=== PATIENT | female | born 1965 | race Caucasian/White ===

== ENCOUNTER 2017-11-23 16:46 | Emergency (ER) | payer MEDICAID ==
[~2017-11-23] VITALS: Ht 177.8 cm; Wt 115.0 kg
[2017-11-23 16:49] VITALS: BP 174/94; PULSE 110; RESP 16; TEMP 98.1; O2SAT 100
[2017-11-23] MEDS ORDERED: SODIUM CHLOR 0.9% 1000 ML INJ 1,000 ML IV SCH (17:23)
[2017-11-23] MEDS ORDERED: SODIUM CHLORIDE 0.9% FLUSH 10 ML FLUSH IV FLUSH PRN (17:30)
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
[2017-11-23 18:04] LABS: AUTOMATED NEUTROPHIL # 6.5 TH/MM3 (1.8-7.7); BASOPHIL # 0.1 TH/MM3 (0-0.2); BASOPHIL % 0.6 % (0.0-2.0); EOSINOPHIL # 0.1 TH/MM3 (0-0.4); EOSINOPHIL % 0.9 % (0.0-4.0); HEMATOCRIT 33.8 % (35.0-46.0); LYMPH % 29.7 % (9.0-44.0); MEAN CELL VOLUME 89.7 FL (80.0-100.0); MEAN CORPUSCULAR HEMOGLOBIN 31.9 PG (27.0-34.0); MEAN CORPUSCULAR HGB CONC 35.5 % (32.0-36.0); MONO % 4.3 % (0.0-8.0); MONOCYTE # 0.4 TH/MM3 (0-0.9); NEUT % 64.5 % (16.0-70.0); PLATELET COUNT 270 TH/MM3 (150-450); RED BLOOD COUNT 3.77 MIL/MM3 (4.00-5.30); RED CELL DISTRIBUTION WIDTH 14.5 % (11.6-17.2)
[2017-11-23] MEDS ORDERED: OXYC-395 PO (18:05)
[2017-11-23] MEDS ORDERED: CYCL5TAB PO (18:05)
[2017-11-23] MEDS ORDERED: HYDR-3799 PO (18:05)
[2017-11-23] MEDS ORDERED: LEVEMIR SQ (18:05)
[2017-11-23] MEDS ORDERED: LIPI10TA PO (18:05)
[2017-11-23] MEDS ORDERED: CYMB30CA PO (18:05)
[2017-11-23] MEDS ORDERED: LOSA25TA PO (18:05)
[2017-11-23] MEDS ORDERED: RISP0.5T25 PO (18:05)
[2017-11-23] MEDS ORDERED: GABA300C5 PO (18:05)
[2017-11-23] MEDS ORDERED: METO100T PO (18:05)
--- NOTE | 2017-11-23 18:14 | RADRPT ---
EXAM DATE/TIME: 11/23/2017 17:45 [facility] COMPARISON: No previous studies available for comparison. INDICATIONS : Chest pain post fall MEDICAL HISTORY : Diabetes mellitus type II. Hypertension SURGICAL HISTORY : None. ENCOUNTER: Initial ACUITY: 1 day PAIN SCORE: 6/10 LOCATION: chest FINDINGS: A single view of the chest demonstrates the lungs to be symmetrically aerated without evidence of mas s, infiltrate or effusion. The cardiomediastinal contours are unremarkable. Osseous structures are intact. CONCLUSION: No acute disease. Yo Pablo MD on November 23, 2017 at 18:12 Board Certified Radiologist. This report was verified electronically.
--- NOTE | 2017-11-23 18:14 | RADRPT ---
EXAM DATE/TIME: 11/23/2017 17:47 [facility] COMPARISON: No previous studies available for comparison. INDICATIONS : Left shoulder pain post fall MEDICAL HISTORY : Diabetes mellitus type II. Hypertension SURGICAL HISTORY : None. ENCOUNTER: Initial ACUITY: 1 day PAIN SCORE: 8/10 LOCATION: Left shoulder FINDINGS: Multiple view examination of the left shoulder demonstrates no evidence of fracture or dislocation. The glenohumeral and acromioclavicular joints are maintained. There is normal range of motion betwee n internal and external rotation. Bony mineralization is normal. CONCLUSION: Unremarkable examination of the left shoulder. Yo Pablo MD on November 23, 2017 at 18:12 Board Certified Radiologist. This report was verified electronically.
--- NOTE | 2017-11-23 18:14 | RADRPT ---
EXAM DATE/TIME: 11/23/2017 17:50 [facility] COMPARISON: No previous studies available for comparison. INDICATIONS : Right ankle pain MEDICAL HISTORY : Hypertension. Diabetes mellitus type II. SURGICAL HISTORY : None. ENCOUNTER: Initial ACUITY: 1 day PAIN SCORE: 7/10 LOCATION: Right ankle FINDINGS: Decreased bone mineralization. There is soft tissue swelling laterally. Ankle mortise is approximated . I do not see a fracture. CONCLUSION: Soft tissue swelling laterally. Yo Pablo MD on November 23, 2017 at 18:12 Board Certified Radiologist. This report was verified electronically.
[2017-11-23 18:15] VITALS: O2SAT 98
[2017-11-23 18:17] LABS: PROTHROMBIN TIME - PATIENT 10.2 SEC (9.8-11.6)
[2017-11-23 18:22] LABS: ALBUMIN 3.2 GM/DL (3.4-5.0); AST (GOT) 17 U/L (15-37); BLOOD UREA NITROGEN 15 MG/DL (7-18); CALCIUM 9.1 MG/DL (8.5-10.1); CHLORIDE 105 MEQ/L (98-107); GLOMERULAR FILTRATION RATE 47 ML/MIN (>89); GLUCOSE,RANDOM 261 MG/DL (74-106); SODIUM (NA) 138 MEQ/L (136-145)
[2017-11-23 18:23] LABS: ALT (GPT) 24 U/L (10-53)
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
[2017-11-23 18:33] LABS: ALKALINE PHOSPHATASE 164 U/L (45-117); TOTAL BILIRUBIN ADULT 0.4 MG/DL (0.2-1.0); TOTAL PROTEIN 7.6 GM/DL (6.4-8.2); TROPONIN I LESS THAN 0.02 NG/ML (0.02-0.05)
[2017-11-23 18:35] LABS: ACETAMINOPHEN LESS THAN 2.0 MCG/ML (10.0-30.0)
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
[2017-11-23 20:18] LABS: BACTERIA, URINE RARE /hpf; BILIRUBIN, URINE NEG (NEG); BLOOD, URINE MOD (NEG); GLUCOSE,URINE 1000 mg/dL (NEG); KETONE, URINE 10 mg/dL (NEG); MUCUS URINE FEW /lpf (OCC); NITRITE,URINE NEG (NEG); PH, URINE 5.5 (5.0-8.5); SQUAMOUS EPITHELIAL CELL URINE 5 /hpf (0-5); TRANSITIONAL EPI CELLS, URINE <1 /hpf; URINE COLOR YELLOW (YELLW/STRAW); URINE LEUKOCYTE ESTERASE LARGE (NEG)
[2017-11-23] MEDS ORDERED: cefTRIAXone INJ 1,000 MG in SODIUM CHLORIDE 0.9% INJ 100 ML IV ONE (20:30)
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
[2017-11-23 21:58] VITALS: BP 163/88; PULSE 99; RESP 20; O2SAT 100
[2017-11-23] MEDS ORDERED: KETOROLAC TROMETHAMINE 30 MG/ML (IVP) VIAL IV PUSH ONE (22:00)
[2017-11-23] MEDS ORDERED: BACT800T5 PO (22:10)
[2017-11-23] MEDS ORDERED: risperiDONE 1 MG TAB PO ONE (22:30)
--- NOTE | 2017-11-24 08:55 | EKG ---
Date Performed: 11/23/2017 Time Performed: 18:42:41 PTAGE: 51 years EKG: SINUS TACHYCARDIA ABNORMAL RHYTHM ECG NO PREVIOUS TRACING DOCTOR: Mami Salmeron Interpretating Date/Time 11/24/2017 08:54:56
== END 2017-11-23 23:22 | disposition home or self-care (01) ==
LOC: NEPE 16:46
DX: N28.1 Cyst of kidney, acquired (principal); N39.0 Urinary tract infection, site not specified; S09.90XA Unspecified injury of head, initial encounter; S99.911A Unspecified injury of right ankle, initial encounter; S49.92XA Unspecified injury of left shoulder and upper arm, initial encounter; W19.XXXA Unspecified fall, initial encounter; R94.31 Abnormal electrocardiogram [ECG] [EKG]; E11.9 Type 2 diabetes mellitus without complications; I10 Essential (primary) hypertension
CPT/HCPCS: 70450; 71045; 72125; 73030; 73610; 74176; 80053; 80307; 81001; 82140; 82550; 82552; 83605; 84443; 84484; 85025; 85610; 85730; 87086; 93005; 96361; 96365; 96366; 96375; 99285; J0696; J1885; J7030

== ENCOUNTER 2018-05-21 13:31 | Inpatient (IN) ==
[2018-05-21] MEDS ORDERED: Aluminum/Magnesium/Simethacone Susp 30 ML UDC PO PRN (20:04)
[2018-05-21] MEDS ORDERED: Melatonin 5 MG Tablet PO PRN (20:04)
[2018-05-21] MEDS ORDERED: Dextrose 50% in Water 50 ML Vial IV.PUSH PRN (20:07)
[2018-05-21] MEDS: Acetaminophen 325 MG Tablet PO PRN (22:25)
[2018-05-21] MEDS: Insulin NovoLOG Aspart Correctional Sugar Inj SQ SCH (22:31)
[2018-05-22] MEDS: Acetaminophen 325 MG Tablet PO PRN (05:00)
[2018-05-22 05:34] VITALS: O2SAT 97
[2018-05-22 05:55] VITALS: RESP 16
[2018-05-22] MEDS: Insulin NovoLOG Aspart Correctional Sugar Inj SQ SCH ×3 (08:00→11:42)
[2018-05-22 08:27] LABS: Albumin 2.6 g/dL (3.4-5.0); Anion Gap 11 meq/L (5-15); Aspartate Aminotransferase 12 U/L (15-37); Blood Urea Nitrogen 10 mg/dL (7-18); Chloride 113 meq/L (98-107); Glomerular Filtration Rate 59 mL/min (>89); Glucose,Random 93 mg/dL (74-106); Potassium 3.2 meq/L (3.5-5.1); Sodium 145 meq/L (136-145)
[2018-05-22 08:28] LABS: Alanine Aminotransferase 17 U/L (10-53); Cholesterol 101 mg/dL (120-200)
[2018-05-22 08:30] LABS: Total Protein 6.1 g/dL (6.4-8.2)
[2018-05-22 08:31] LABS: Alkaline Phosphatase 134 U/L (45-117); Chol/HDL Ratio 4.22 Ratio; HDL Cholesterol 23.9 mg/dL (40.0-60.0); LDL Cholesterol,Calculated 48 mg/dL (0-99); Triglycerides 144 mg/dL (42-150)
[2018-05-22] MEDS: Gabapentin 300 MG Capsule PO SCH ×2 (08:41→12:43)
[2018-05-22] MEDS: hydrALAZINE 25 MG Tablet PO SCH ×2 (08:42→12:43)
[2018-05-22] MEDS ORDERED: Insulin Detemir Inj 1,000 UNIT/10 ML Vial SQ SCH (09:00)
[2018-05-22] MEDS ORDERED: Metoprolol Tartrate 100 MG Tablet PO SCH (09:00)
[2018-05-22 09:13] LABS: Baso % (Auto) 0.4 % (0.0-2.0); Eos % (Auto) 0.5 % (0.0-4.0); Hemoglobin 10.1 gm/dL (11.6-15.3); Lymph # (Auto) 2.4 th/mm3 (1.0-4.8); Lymph % (Auto) 31.6 % (9.0-44.0); Mean Corpuscular HGB Conc 32.8 % (32.0-36.0); Mean Corpuscular Hemoglobin 30.3 pg (27.0-34.0); Mean Corpuscular Volume 92.5 fL (80.0-100.0); Mono # (Auto) 0.6 th/mm3 (0.0-0.9); Mono % (Auto) 8.3 % (0.0-8.0); Neut # (Auto) 4.5 th/mm3 (1.8-7.7); Neut % (Auto) 59.2 % (16.0-70.0); Platelet Count 192 th/mm3 (150-450); Red Blood Count 3.35 mil/mm3 (4.00-5.30); White Blood Count 7.6 th/mm3 (4.0-11.0)
--- NOTE | 2018-05-22 09:36 | P.CONIM ---
History of Present Illness Service: [facility] Consult date: 05/22/18 Reason for Consult: Medical mgmt Primary Care Provider: Gasper Singh Family Provider: Gasper Singh Chief Complaint: overdose History of Present Illness: This is a 52-year-old CF with PMHx of Depression, HTN, IDDM, and HLD admitted from [facility] under [place] act. The patient was admitted initially for intentional overdose of her prescription medications and required ICU care. Per the [facility]'s office patient was depressed because she got a text from her daughter saying she was not wanted. The patient then took a large number of pills in an attempt to end her life and posted it on her daughter's FB page. Patient on evaluation today states that she is still depressed but no longer has S/H ideation. Patient reports compliance with all medications for her chronic illness, she states that she has a PCP that she sees every few months. She reports that her BS are stable, she denies CP and SOB. we have been consulted for medical mgmt. Review of Systems All other systems reviewed negative except as stated in HPI PMFSH - History History Provided By: Patient - Medical History Medical History: Medical History (Last Updated 05/22/18 @ 14:47 by Laurie Hill MD) Diabetes History of hysterectomy Hyperlipidemia Hypertension - Surgical History Surgical History: Surgical History (Last Updated 05/22/18 @ 14:47 by Laurie Hill MD) History of back surgery History of knee surgery Hx of cholecystectomy - Family History Family History: Family History (Last Reviewed 05/22/18 @ 14:48 by Laurie Hill MD) Other Mood disorder Psychosis - Social History I have reviewed the patient's Social History: Yes - Tobacco History Second Hand Smoke Exposure: No Tobacco Use In Past 30 Days: No Smoking Status: Former smoker Tobacco Type: Cigarettes - Alcohol History How Often Do You Have a Drink Containing Alcohol: Never - Substance Use History Substance History: No History of Abuse - Immunization History Tetanus Immunization: Unable to Assess Hx Influenza Vaccine This Season: No Medications and Allergies Active Medications: Active Medications Acetaminophen (Tylenol) 650 mg PO Q4H PRN PRN Reason: Pain 1-5 or Temp >101F Last Admin: 05/22/18 05:00 Dose: 650 mg Al Hydrox/Mg Hydrox/Simethicone (Mag-Al Plus Susp Liq) 30 ml PO Q6H PRN PRN Reason: DYSPEPSIA Al Hydroxide/Mg Hydroxide (Milk Of Magnesia Liq) 30 ml PO Q12H PRN PRN Reason: Mild Constipation Atorvastatin Calcium (Lipitor) 20 mg PO DAILY [facility] Last Admin: 05/22/18 08:40 Dose: 20 mg Clonidine HCl (Catapres) 0.1 mg PO Q8HR PRN PRN Reason: SBP>180 or DBP>100 Last Admin: 05/22/18 05:01 Dose: 0.1 mg Dextrose (D50w Vial) 50 ml IV.PUSH UNSCH PRN PRN Reason: PER HYPOGLYCEMIA PROTOCOL Gabapentin (Neurontin) 600 mg PO TID [facility] Last Admin: 05/22/18 08:41 Dose: 600 mg Glucagon (Glucagon Inj) 1 mg OTHER PRN PRN PRN Reason: for Hypoglycemia Protocol Hydralazine HCl (Apresoline) 25 mg PO TID [facility] Last Admin: 05/22/18 08:42 Dose: 25 mg Insulin Aspart (Novolog Insulin Correctional Sugar Inj) 0 unit SQ [facility]; Protocol Last Admin: 05/22/18 08:46 Dose: Not Given Insulin Detemir (Levemir Inj) 35 unit SQ BID [facility] Last Admin: 05/22/18 08:44 Dose: 35 unit Losartan Potassium (Cozaar) 25 mg PO DAILY [facility] Last Admin: 05/22/18 08:41 Dose: 25 mg Melatonin (Melatonin) 5 mg PO HS PRN PRN Reason: INSOMNIA Last Admin: 05/21/18 22:25 Dose: 5 mg Metoprolol Tartrate (Lopressor) 100 mg PO BID [facility] Last Admin: 05/22/18 08:41 Dose: 100 mg Nicotine (Habitrol 21 Mg Patch.24 Hr) 1 patch T-DERMAL DAILY PRN PRN Reason: Nicotine craving Patch Removal (Remove Old Patch) 1 each T-DERMAL DAILY [facility] Last Admin: 05/22/18 08:45 Dose: Not Given Potassium Chloride (K-Dur) 40 meq PO ONCE ONE Stop: 05/22/18 09:35 Allergies Allergy/AdvReac Type Severity Reaction Status Date / Time lisinopril Allergy Unknown Verified 11/23/17 18:19 metformin Allergy Unknown Verified 11/23/17 18:19 prochlorperazine Allergy Unknown Verified 11/23/17 18:19 Home Medications Medication Instructions Recorded Confirmed Type atorvastatin 20 mg PO DAILY 05/21/18 05/21/18 History duloxetine 30 mg PO BID 05/21/18 05/21/18 History gabapentin 600 mg PO TID 05/21/18 05/21/18 History hydralazine 25 mg PO TID 05/21/18 05/21/18 History insulin detemir U-100 [Levemir 35 unit SUBCUT BID 05/21/18 05/21/18 History U-100 Insulin] losartan 25 mg PO DAILY 05/21/18 05/21/18 History metoprolol tartrate 100 mg PO BID 05/21/18 05/21/18 History Exam Vital signs: Vital Signs 05/21/18 22:25 05/21/18 23:29 05/21/18 23:31 Temperature Pulse Rate 133 H 98 H Respiratory Rate 28 H 18 16 Blood Pressure 193/103 H 157/74 H Pulse Oximetry 05/22/18 05:32 05/22/18 05:54 05/22/18 06:49 Temperature 98.2 F Pulse Rate 108 H Respiratory Rate 18 16 16 Blood Pressure 205/115 H 157/77 H Pulse Oximetry 97 Narrative: GENERAL: well nourished female, in NAD, lying comfortable in bed SKIN: Warm and dry. HEAD: Normocephalic. EYES: No scleral icterus. No injection or drainage. NECK: Supple, trachea midline. No JVD or lymphadenopathy. CARDIOVASCULAR: Regular rate and rhythm without murmurs, gallops, or rubs. RESPIRATORY: Breath sounds equal bilaterally. No accessory muscle use. GASTROINTESTINAL: Abdomen soft, non-tender, nondistended. MUSCULOSKELETAL: No cyanosis, or edema. BACK: Nontender without obvious deformity. No CVA tenderness. Results - Labs CBC & Chem 7: 05/22/18 07:13 05/22/18 07:13 Labs: Laboratory Results - last 24 hr 05/21/18 05/22/18 05/22/18 21:04 06:30 07:13 WBC 7.6 RBC 3.35 L Hgb 10.1 L Hct 31.0 L MCV 92.5 MCH 30.3 MCHC 32.8 RDW 15.0 Plt Count 192 MPV 9.0 Neut % (Auto) 59.2 Lymph % (Auto) 31.6 [place] % (Auto) 8.3 H Eos % (Auto) 0.5 Baso % (Auto) 0.4 Neut # (Auto) 4.5 Lymph # (Auto) 2.4 [place] # (Auto) 0.6 Eos # (Auto) 0.0 Baso # (Auto) 0.0 WBC Differential . Differential Comment Auto diff final Sodium Potassium Chloride Carbon Dioxide Anion Gap BUN Creatinine Estimated GFR POC Glucose 166 H 108 Random Glucose Calcium Total Bilirubin AST ALT Alkaline Phosphatase Total Protein Albumin Triglycerides Cholesterol LDL Cholesterol, Calc HDL Cholesterol Cholesterol/HDL Ratio 05/22/18 05/22/18 07:13 07:39 WBC RBC Hgb Hct MCV MCH MCHC RDW Plt Count MPV Neut % (Auto) Lymph % (Auto) [place] % (Auto) Eos % (Auto) Baso % (Auto) Neut # (Auto) Lymph # (Auto) [place] # (Auto) Eos # (Auto) Baso # (Auto) WBC Differential Differential Comment Sodium 145 Potassium 3.2 L Chloride 113 H Carbon Dioxide 21.0 Anion Gap 11 BUN 10 Creatinine 0.99 Estimated GFR 59 L POC Glucose 109 Random Glucose 93 Calcium 8.0 L Total Bilirubin 0.4 AST 12 L ALT 17 Alkaline Phosphatase 134 H Total Protein 6.1 L Albumin 2.6 L Triglycerides 144 Cholesterol 101 L LDL Cholesterol, Calc 48 HDL Cholesterol 23.9 L Cholesterol/HDL Ratio 4.22 Assessment and Plan - Assessment (1) Hypertension Code(s): I10 - Essential (primary) hypertension Status: Chronic (2) Hyperlipemia Code(s): E78.5 - Hyperlipidemia, unspecified Status: Chronic (3) Major depressive disorder, recurrent, severe w/o psychotic behavior Code(s): F33.2 - Major depressive disorder, recurrent severe without psychotic features Status: Chronic (4) Diabetes Code(s): E11.9 - Type 2 diabetes mellitus without complications Status: Chronic - Plan This is a 52-year-old CF with PMHx of Depression, HTN, IDDM, and HLD admitted from [facility] under [place] act for intentional overdose of her prescription medications and required ICU care, she is now managed by Psych and we have been consulted for medical mgmt, HD#2 1. Hypertension, poorly controlled -Cont. home Metoprolol 100mg BID, Hydralazine 25mg TID, and Losartan 25mg QD. Will increase Losartan to 50mg QD, cont. Clonidine PRN. -If cannot control BP adequately will need Labetalol or Hydralazine IV (cannot have Vasotec due to SARAH allergy) -Asymptomatic on exam -Cont. to monitor 2. Hypokalemia -K3.2 today, given KCl 40meq PO x1 -recheck BMP in AM 3. IDDM -HgA1c obtained on admission, F/U results -BS: 166, 108 -Cont. home Detemir 35U BID and SSI -Diabetic diet 4. HLD -Cont. home statin -LDL 48 on admission 5. Anemia -Hgb 10.1, denies active bleeding -Iron Profile ordered -Rx Ferrous Sulfate -F/U CBC in AM 6. Major Depressive Disorder, recurrent severe without psychotic features -Cont. Risperdal along with Atarax PRN and Benadryl PRN -Managed by Psych 7. DVT PPX: SCD's 8. DISPO: F/U K in AM, monitor BP and adjust BP meds as needed. Code Status: full Discussed Condition With: patient and RN
[2018-05-22] MEDS ORDERED: Aluminum/Magnesium/Simethacone Susp 30 ML UDC PO PRN (13:32)
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
[2018-05-22] MEDS ORDERED: *Labetalol HCl Inj 100 MG/20 ML Vial PERIprocedural Use ONLY IV.PUSH ONE (14:23)
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
[2018-05-22 15:07] VITALS: BP 168/94; PULSE 79; TEMP 98
[2018-05-22] MEDS ORDERED: Ferrous Sulfate 325 MG Tablet PO SCH (21:00)
== END 2018-05-22 16:07 | disposition short-term general hospital (02) ==
LOC: H260 18:25
PROVIDERS: ADMIT Psychiatry & Neurology Psychiatry; ATTEND Psychiatry & Neurology Psychiatry

== ENCOUNTER 2018-05-22 15:00 | Inpatient (IN) ==
[2018-05-22] MEDS ORDERED: Bisacodyl 10 MG Supp RECTAL PRN (16:58)
[2018-05-22] MEDS ORDERED: Acetaminophen 325 MG Tablet PO PRN (16:58)
[2018-05-22] MEDS: hydrALAZINE 25 MG Tablet PO SCH (17:27)
[2018-05-22] MEDS ORDERED: Labetalol HCl Inj 100 MG/20 ML Vial IV.PUSH PRN (17:30)
[2018-05-22] MEDS ORDERED: cloNIDine Susp (NICU) 20 MCG/ML 30 ML Bottle PO PRN (17:33)
[2018-05-22] MEDS ORDERED: Dextrose 50% in Water 50 ML Vial IV.PUSH PRN ×2 (17:40→17:41)
[2018-05-22 19:29] VITALS: RESP 18
[2018-05-22] MEDS: Gabapentin 300 MG Capsule PO SCH (19:37)
[2018-05-22] MEDS ORDERED: Metoprolol Tartrate 100 MG Tablet PO SCH (21:00)
[2018-05-22] MEDS: Metoprolol Tartrate 100 MG Tablet PO SCH (21:51)
[2018-05-22] MEDS: Senna/Docusate Sodium 8.6/50 MG Tablet PO SCH (21:51)
[2018-05-22] MEDS: Insulin Detemir Inj 1,000 UNIT/10 ML Vial SQ SCH (21:52)
[2018-05-22] MEDS: Insulin NovoLIN Regular Correctional Sugar Inj SQ SCH (21:55)
[2018-05-23 07:31] LABS: Baso # (Auto) 0.1 th/mm3 (0.0-0.2); Baso % (Auto) 0.6 % (0.0-2.0); Eos # (Auto) 0.1 th/mm3 (0.0-0.4); Hematocrit 31.8 % (35.0-46.0); Hemoglobin 10.4 gm/dL (11.6-15.3); Lymph % (Auto) 26.7 % (9.0-44.0); Mean Corpuscular HGB Conc 32.8 % (32.0-36.0); Mean Corpuscular Hemoglobin 30.2 pg (27.0-34.0); Mean Platelet Volume 9.3 fL (7.0-11.0); Mono # (Auto) 0.6 th/mm3 (0.0-0.9); Mono % (Auto) 5.7 % (0.0-8.0); Neut # (Auto) 7.3 th/mm3 (1.8-7.7); Platelet Count 207 th/mm3 (150-450); Red Blood Count 3.46 mil/mm3 (4.00-5.30); White Blood Count 11.1 th/mm3 (4.0-11.0)
[2018-05-23 07:52] LABS: Alanine Aminotransferase 18 U/L (10-53); Albumin 2.7 g/dL (3.4-5.0); Anion Gap 7 meq/L (5-15); Aspartate Aminotransferase 14 U/L (15-37); Blood Urea Nitrogen 8 mg/dL (7-18); Calcium 8.3 mg/dL (8.5-10.1); Carbon Dioxide 25.6 meq/L (21.0-32.0); Chloride 114 meq/L (98-107); Glomerular Filtration Rate 59 mL/min (>89); Glucose,Random 93 mg/dL (74-106); Potassium 3.5 meq/L (3.5-5.1); Sodium 147 meq/L (136-145)
[2018-05-23 07:54] LABS: Alkaline Phosphatase 142 U/L (45-117); Total Protein 6.4 g/dL (6.4-8.2)
[2018-05-23] MEDS: Gabapentin 300 MG Capsule PO SCH ×2 (08:51→12:50)
[2018-05-23] MEDS: Senna/Docusate Sodium 8.6/50 MG Tablet PO SCH (08:51)
[2018-05-23] MEDS: hydrALAZINE 25 MG Tablet PO SCH ×2 (08:53→12:50)
[2018-05-23] MEDS: Metoprolol Tartrate 100 MG Tablet PO SCH (08:53)
[2018-05-23] MEDS ORDERED: Insulin Detemir Inj 1,000 UNIT/10 ML Vial SQ SCH ×2 (09:00→09:12)
[2018-05-23] MEDS: Insulin NovoLIN Regular Correctional Sugar Inj SQ SCH ×2 (09:17→11:56)
[2018-05-23] MEDS: Insulin Detemir Inj 1,000 UNIT/10 ML Vial SQ SCH (09:24)
[2018-05-23] MEDS ORDERED: LORazepam 0.5 MG Tablet PO PRN (09:55)
[2018-05-23 12:35] VITALS: BP 157/90; TEMP 97.9; O2SAT 96
--- NOTE | 2018-05-23 13:12 | P.DS ---
Date of admission: 05/22/18 16:29 Primary care physician: UNKNOWN Brief History from admission: Patient was admitted for uncontrolled hypertension lasting greater than 24 hours and mostly above 200 systolic. She was transferred from psychiatry where she was admitted following expression of suicidal ideations. See H&P from previous V-number 05/22/2018 DS: Summary Hospital Course: 52-year-old female with a history of type 2 diabetes, major depressive disorder , hypertension. She admitted to tx that she had a disagreement with her daughter and felt depressed about her situation, made a pelvic statement about killing herself and was Castro acted to the psychiatric facility. This was not her planned and when she was admitted she was under a great deal of emotional turmoil with the predicament that her choices created. She was offered hydroxyzine but that makes her dizzy. She had no anxiolytic according to her report and was dealing with things internally. Since being admitted to our floor she has had more time to think, calm down, was also given 50 mg of losartan instead of 25 mg daily. Her blood pressure is reasonably controlled now in the 150s. She feels the elevation of her blood pressure was more related to emotional issues and cardiac issues. At this point she seems stable for transfer back to psych. Recommendation is to continue the losartan at 50 mg daily. I put a parameter to use clonidine if her systolic blood pressure goes above 165. Other than this she is medically stable and asymptomatic. - Time Spent with Patient Total time spent providing and/or coordinating discharge services: Less than 30 minutes - Quality: VTE Deep Vein Thrombosis/Pulmonary Embolism Present on Admission: No Exam Vital signs: Vital Signs 05/22/18 17:00 05/22/18 17:40 05/22/18 18:00 Temperature 98.8 F Pulse Rate 68 73 88 Respiratory Rate 18 Blood Pressure 181/102 H Pulse Oximetry 99 05/22/18 19:00 05/22/18 20:00 05/22/18 21:00 Temperature 98.5 F Pulse Rate 79 72 72 Respiratory Rate 18 Blood Pressure 153/95 H Pulse Oximetry 99 05/22/18 22:00 05/22/18 23:00 05/22/18 23:27 Temperature 97.6 F Pulse Rate 74 83 74 Respiratory Rate 18 Blood Pressure 144/79 H Pulse Oximetry 98 05/23/18 00:00 05/23/18 01:00 05/23/18 02:00 Temperature Pulse Rate 74 70 74 Respiratory Rate Blood Pressure Pulse Oximetry 05/23/18 03:00 05/23/18 04:00 05/23/18 05:00 Temperature 97.7 F Pulse Rate 71 73 66 Respiratory Rate 18 Blood Pressure 112/66 Pulse Oximetry 98 05/23/18 06:00 05/23/18 07:00 05/23/18 08:00 Temperature 98.3 F Pulse Rate 80 72 66 Respiratory Rate 18 Blood Pressure 157/91 H Pulse Oximetry 99 05/23/18 09:00 05/23/18 10:00 05/23/18 11:00 Temperature Pulse Rate 76 70 85 Respiratory Rate Blood Pressure Pulse Oximetry 05/23/18 12:00 Temperature 97.9 F Pulse Rate 72 Respiratory Rate 18 Blood Pressure 157/90 H Pulse Oximetry 96 Intake & Output 05/22/18 05/23/18 05/23/18 18:59 06:59 18:59 Intake Total 240 / 240 720 / 720 Balance 240 / 240 720 / 720 Weight 115.5 kg Intake: Oral 240 / 240 720 / 720 Other: # Voids 1 3 Date of Last Bowel Movement 05/22/18 05/22/18 Results Procedures completed during hospitalization: none Labs on day of discharge: Labs from last 24 hours 05/23/18 05/23/18 05/23/18 11:50 07:12 07:00 WBC RBC Hgb Hct MCV MCH MCHC RDW Plt Count MPV Neut % (Auto) Lymph % (Auto) [place] % (Auto) Eos % (Auto) Baso % (Auto) Neut # (Auto) Lymph # (Auto) [place] # (Auto) Eos # (Auto) Baso # (Auto) WBC Differential Differential Comment Sodium 147 H Potassium 3.5 Chloride 114 H Carbon Dioxide 25.6 Anion Gap 7 BUN 8 Creatinine 0.99 Estimated GFR 59 L POC Glucose 144 H 99 Random Glucose 93 Calcium 8.3 L Total Bilirubin 0.3 AST 14 L ALT 18 Alkaline Phosphatase 142 H Total Protein 6.4 Albumin 2.7 L 05/23/18 05/22/18 05/22/18 07:00 21:54 17:54 WBC 11.1 H RBC 3.46 L Hgb 10.4 L Hct 31.8 L MCV 92.0 MCH 30.2 MCHC 32.8 RDW 15.0 Plt Count 207 MPV 9.3 Neut % (Auto) 66.0 Lymph % (Auto) 26.7 [place] % (Auto) 5.7 Eos % (Auto) 1.0 Baso % (Auto) 0.6 Neut # (Auto) 7.3 Lymph # (Auto) 3.0 [place] # (Auto) 0.6 Eos # (Auto) 0.1 Baso # (Auto) 0.1 WBC Differential . Differential Comment Auto diff final Sodium Potassium Chloride Carbon Dioxide Anion Gap BUN Creatinine Estimated GFR POC Glucose 104 111 H Random Glucose Calcium Total Bilirubin AST ALT Alkaline Phosphatase Total Protein Albumin 05/22/18 16:41 WBC RBC Hgb Hct MCV MCH MCHC RDW Plt Count MPV Neut % (Auto) Lymph % (Auto) [place] % (Auto) Eos % (Auto) Baso % (Auto) Neut # (Auto) Lymph # (Auto) [place] # (Auto) Eos # (Auto) Baso # (Auto) WBC Differential Differential Comment Sodium Potassium Chloride Carbon Dioxide Anion Gap BUN Creatinine Estimated GFR POC Glucose 86 Random Glucose Calcium Total Bilirubin AST ALT Alkaline Phosphatase Total Protein Albumin Discharge Plan - Discharge Disposition Patient Disposition: 65 Disc To [facility] Facility - Discharge Condition Condition: Good - Discharge Order Discharge Orders: Discharge Order (Routine); Ordered 05/23/18 Ordered By: Breezy Heller - Physicians Team Primary Care Provider: UNKNOWN, Attending Provider: Breezy Heller - Rxs /Orders / Referrals /Forms Prescriptions: New insulin detemir U-100 [Levemir U-100 Insulin] 100 unit/mL Solution 25 unit subcut BID RF: 0 lorazepam 0.5 mg Tablet 0.5 mg PO Q6H PRN (Reason: Anxiety) RF: 0 losartan 50 mg Tablet 50 mg PO DAILY RF: 0 Continue acetaminophen 325 mg Tablet 650 mg PO Q4H PRN (Reason: Pain 1-5 or Temp >101F) RF: 0 alum-mag hydroxide-simeth [Mag-Al Plus] 200-200-20 mg/5 mL Suspension 30 ml PO Q6H PRN (Reason: Dyspepsia) RF: 0 atorvastatin 20 mg Tablet 20 mg PO DAILY clonidine HCl [Catapres] 0.1 mg Tablet 0.1 mg PO Q8HR PRN (Reason: SBP>180 or DBP>100) RF: 0 diphenhydramine HCl 50 mg Capsule 50 mg PO HS PRN (Reason: Insomnia) RF: 0 duloxetine 30 mg Capsule,Delayed Release(Dr/Ec) 30 mg PO BID gabapentin 300 mg Capsule 600 mg PO TID hydralazine 25 mg Tablet 25 mg PO TID insulin aspart U-100 [Novolog U-100 Insulin aspart] 100 unit/mL Solution 0 unit subcut ACHS RF: 0 magnesium hydroxide [Milk of Magnesia] 400 mg/5 mL Suspension 30 ml PO Q12H PRN (Reason: Mild Constipation) RF: 0 metoprolol tartrate 100 mg Tablet 100 mg PO BID risperidone [Risperdal] 1 mg Tablet 1 mg PO BID RF: 0 Discontinued hydroxyzine HCl 50 mg Tablet 50 mg PO Q6H PRN (Reason: Anxiety) RF: 0 insulin detemir U-100 [Levemir U-100 Insulin] 100 unit/mL Solution 35 unit SUBCUT BID losartan 25 mg Tablet 25 mg PO DAILY Referrals: Gasper Singh MD [Family Provider] - See Instructions UNKNOWN, [Primary Care Provider] - See Instructions
[2018-05-23 16:04] VITALS: PULSE 77
--- NOTE | 2018-06-14 17:02 | P.HP ---
History of Present Illness Primary Care Physician: UNKNOWN History of Present Illness: Patient was admitted for uncontrolled hypertension lasting greater than 24 hours and mostly above 200 systolic. She was transferred from psychiatry where she was admitted following expression of suicidal ideations. See H&P from previous V-number 05/22/2018 52-year-old female with a history of type 2 diabetes, major depressive disorder , hypertension. She admitted to [place] that she had a disagreement with her daughter and felt depressed about her situation, made a regrettable statement about killing herself and was Castro acted to the psychiatric facility. This was not her plan and when she was admitted she was under a great deal of emotional turmoil with the predicament that her choices created. She was offered hydroxyzine but that makes her dizzy. She had no anxiolytic according to her report and was dealing with things internally. Since being admitted to our floor she has had more time to think, calm down, was also given 50 mg of losartan instead of 25 mg daily. Her blood pressure is reasonably controlled now in the 150s. She feels the elevation of her blood pressure was more related to emotional issues and cardiac issues. At this point she seems stable for transfer back to psych. Recommendation is to continue the losartan at 50 mg daily. I put a parameter to use clonidine if her systolic blood pressure goes above 165. Other than this she is medically stable and asymptomatic. No nausea, vomiting, diarrhea. No fever, URI symptoms, UTI symptoms, Cardiac symptoms. Inpatient Certification: I certify that the inpatient services were ordered in accordance with Medicare regulations governing the order. This includes certification that hospital inpatient services are reasonable and necessary and in the case of services not specified as inpatient-only under 42 CFR 419.22(n), that they are appropriately provided as inpatient services in accordance to with the 2-midnight benchmark under 43 CFR 412.3(e) Review of Systems All other systems reviewed negative except as stated in HPI PMFSH - History History Provided By: Patient - Medical History Medical History: Medical History (Last Reviewed 05/24/18 @ 14:42 by JEANNIE Jhon) Diabetes History of hysterectomy Hyperlipidemia Hypertension - Surgical History Surgical History: Surgical History (Last Reviewed 05/24/18 @ 14:42 by JEANNIE John) History of back surgery History of knee surgery Hx of cholecystectomy - Family History Family History: Family History (Last Reviewed 05/24/18 @ 14:43 by JEANNIE John) Other Mood disorder Psychosis - Tobacco History Second Hand Smoke Exposure: No Tobacco Use In Past 30 Days: No Smoking Status: Former smoker Tobacco Type: Cigarettes - Alcohol History How Often Do You Have a Drink Containing Alcohol: Never - Substance Use History Substance History: No History of Abuse Medications and Allergies Allergies Allergy/AdvReac Type Severity Reaction Status Date / Time lisinopril Allergy Unknown Verified 11/23/17 18:19 metformin Allergy Unknown Verified 11/23/17 18:19 prochlorperazine Allergy Unknown Verified 11/23/17 18:19 Exam Narrative: GENERAL: AAOx3, no acute distress, adequate nutrition SKIN: Warm and dry, no rashes. HEAD: Atraumatic. Normocephalic. EYES: Pupils equal, round, reactive to light. No scleral icterus. No injection or drainage. ENT: No nasal bleeding or discharge. Moist mucous membranes. Nonerythematous oropharynx. NECK: Trachea midline. No JVD. Thyroid size within normal limits. CARDIOVASCULAR: Regular rate and rhythm. No murmur, no gallops, no rubs. RESPIRATORY: Clear and equal to auscultation bilaterally. No crackles, no wheezes. No accessory muscle use. GASTROINTESTINAL: Abdomen soft, non-tender, nondistended, normal active bowel sounds. Hepatic and splenic margins not palpable. MUSCULOSKELETAL: Extremities without clubbing or cyanosis. No obvious deformities. No edema. NEUROLOGICAL: Awake and alert. No obvious cranial nerve deficits. Motor grossly within normal limits. No focal deficits. Five out of 5 muscle strength in the arms and legs. Normal speech. PSYCHIATRIC: Appropriate mood and affect; insight and judgment normal. Results - Labs CBC & Chem 7: 05/23/18 07:00 05/23/18 07:00 Caprini VTE Risk Assessment Caprini VTE Risk Assessment: No/Low Risk (score <= 1) Caprini Risk Assessment Model: Point Value = 1 Point Value = 2 Point Value = 3 Point Value = 5 Age 41-60 Minor surgery BMI > 25 kg/m2 Swollen legs Varicose veins or History of unexplained or recurrent spontaneous Oral contraceptives or hormone replacement Sepsis (< 1 month) Serious lung disease, including pneumonia (< 1 month) Abnormal pulmonary function Acute myocardial infarction Congestive heart failure (< 1 month) History of inflammatory bowel disease Medical patient at bed rest Age 61-74 Arthroscopic surgery Major open surgery (> 45 min) Laparoscopic surgery (> 45 min) Malignancy Confined to bed (> 72 hours) Immobilizing plaster cast Central venous access Age >= 75 History of VTE Family history of VTE Factor V Leiden Prothrombin [id number] Lupus anticoagulant Anticardiolipin antibodies Elevated serum homocysteine Heparin-induced thrombocytopenia Other congenital or acquired thrombophilia Stroke (< 1 month) Elective arthroplasty Hip, pelvis, or leg fracture Acute spinal cord injury (< 1 month) Prophylaxis Regimen: Total Risk Factor Score Risk Level Prophylaxis Regimen 0-1 Low Early ambulation 2 Moderate Order ONE of the following: *Sequential Compression Device (SCD) *Heparin 5000 units SQ BID 3-4 Higher Order ONE of the following medications: *Heparin 5000 units SQ TID *Enoxaparin/Lovenox 40 mg SQ daily (WT < 150 kg, CrCl > 30 mL/min) *Enoxaparin/Lovenox 30 mg SQ daily (WT < 150 kg, CrCl > 10-29 mL/min) *Enoxaparin/Lovenox 30 mg SQ BID (WT < 150 kg, CrCl > 30 mL/min) AND/OR *Sequential Compression Device (SCD) 5 or more Highest Order ONE of the following medications: *Heparin 5000 units SQ TID (Preferred with Epidurals) *Enoxaparin/Lovenox 40 mg SQ daily (WT < 150 kg, CrCl > 30 mL/min) *Enoxaparin/Lovenox 30 mg SQ daily (WT < 150 kg, CrCl > 10-29 mL/min) *Enoxaparin/Lovenox 30 mg SQ BID (WT < 150 kg, CrCl > 30 mL/min) AND *Sequential Compression Device (SCD) Assessment and Plan - Plan Hypertensive urgency Systolic blood pressure remained above 200 for too long and psych Most of this was due to emotional distress, she had no intention of being admitted to psych and regrets this Now that she is calm on the floor her blood pressure is mildly elevated, losartan was added at 50 mg daily Clonidine for any breakthrough hypertension Blood pressure is stable and she is medically cleared for transfer back to [facility] Major depressive disorder with suicidal ideation Patient was Castro acted to the psych facility and transferred to medical floor due to uncontrolled hypertension Her hypertension is not controlled and she may be transferred back to psych Type 2 diabetes Accu-Cheks with sliding scale insulin coverage Diabetic diet Disposition Transfer back to [facility] for clearance of Castro act
== END 2018-05-23 15:44 ==
LOC: HCIS 16:29
PROVIDERS: ADMIT Family Medicine; ATTEND Family Medicine

== ENCOUNTER 2018-05-23 15:49 | Inpatient (IN) ==
--- NOTE | 2018-05-23 16:15 | P.PNPSY ---
Subjective Remarks: This is a request for second opinion. Admission note was reviewed and I agree with the history. Patient was seen and case was discussed with nursing. Patient overdosed on combinations of various medications. She says she took about 150 tablets. She notes poor compliance with her outpatient provider. She does not endorse any specific stressors. She feels shame and guilt for her attempt. She is motivated to get better. Mood is sad with a blunted affect. Today, she does deny suicidal or homicidal ideation intent or plan. Safety plan reviewed and supportive therapy done Mental Status Examination Appearance: Disheveled Consciousness: Alert Orientation: x4 Motor Activity: Normal gait Speech: Hesitant, Slow Language: Adequate Fund of Knowledge: Adequate Attention and Concentration: Adequate Memory: Unremarkable Mood: Sad Affect: Sad, Blunt Thought Process & Associations: Intact Thought Content: Appropriate Delusion Type: None Suicidal Ideation: No Suicidal Plan: No Suicidal Intention: No Homicidal Ideation: No Homicidal Plan: No Homicidal Intention: No Insight: Poor Judgment: Poor Assessment and Plan - Assessment (1) Unspecified mood [affective] disorder Code(s): F39 - Unspecified mood [affective] disorder Status: Acute - Plan Plan: Estimated LOS: [] days I agree with the first opinion to continue petition. Criteria include suicide attempt Justification for Continued Inpatient Stay: Patient would decompensate in a less restrictive setting
[2018-05-23] MEDS ORDERED: Aluminum/Magnesium/Simethacone Susp 30 ML UDC PO PRN ×2 (16:26→16:33)
[2018-05-23] MEDS ORDERED: Acetaminophen 325 MG Tablet PO PRN ×2 (16:26→16:33)
[2018-05-23] MEDS ORDERED: cloNIDine Susp (NICU) 20 MCG/ML 30 ML Bottle PO PRN (16:33)
[2018-05-23] MEDS: Insulin NovoLOG Aspart Correctional Sugar Inj SQ SCH ×2 (17:09→22:07)
[2018-05-23] MEDS: hydrALAZINE 25 MG Tablet PO SCH (17:40)
[2018-05-23] MEDS: Gabapentin 300 MG Capsule PO SCH (17:40)
[2018-05-23] MEDS: Metoprolol Tartrate 100 MG Tablet PO SCH (21:50)
[2018-05-23] MEDS: Senna/Docusate Sodium 8.6/50 MG Tablet PO SCH (21:51)
[2018-05-23] MEDS: Insulin Detemir Inj 1,000 UNIT/10 ML Vial SQ SCH (21:52)
[2018-05-24 05:57] VITALS: RESP 17
[2018-05-24] MEDS: Insulin NovoLOG Aspart Correctional Sugar Inj SQ SCH ×4 (07:56→23:03)
[2018-05-24] MEDS: Insulin Detemir Inj 1,000 UNIT/10 ML Vial SQ SCH ×2 (08:30→22:16)
[2018-05-24] MEDS: Senna/Docusate Sodium 8.6/50 MG Tablet PO SCH ×2 (09:00→21:21)
[2018-05-24] MEDS: Metoprolol Tartrate 100 MG Tablet PO SCH ×2 (09:22→21:21)
[2018-05-24] MEDS: Gabapentin 300 MG Capsule PO SCH ×3 (09:22→18:39)
[2018-05-24] MEDS: hydrALAZINE 25 MG Tablet PO SCH ×3 (09:23→18:39)
[2018-05-24] MEDS: LORazepam 0.5 MG Tablet PO PRN ×3 (11:03→21:21)
--- NOTE | 2018-05-24 12:08 | P.PNPSY ---
Subjective Remarks: Reviewed electronic medical records and discussed case with staff. Follow-up was conducted in the day room with PAULINE Varghese present. Patient states that her blood sugars have decreased from 300's to 100's and she can feel the difference. She is eating her meals and will ask for a snack if needed. She is complaining of her feet swelling. She is followed by the hospitalist. She feels that her medications are working. She is getting more sleep and feels less depressed. Review of Systems All other systems reviewed negative except as stated in HPI Mental Status Examination Appearance: Appropriate Consciousness: Alert Orientation: x4 Motor Activity: Normal gait Speech: Unremarkable Language: Adequate Fund of Knowledge: Adequate Attention and Concentration: Adequate Memory: Unremarkable Mood: Sad Affect: Sad Thought Process & Associations: Intact Thought Content: Appropriate Hallucination Type: None Delusion Type: None Suicidal Ideation: No Suicidal Plan: No Suicidal Intention: No Homicidal Ideation: No Homicidal Plan: No Homicidal Intention: No Insight: Fair Judgment: Impulsive Assessment and Plan - Assessment (1) Major depressive disorder, recurrent, severe w/o psychotic behavior Code(s): F33.2 - Major depressive disorder, recurrent severe without psychotic features Status: Chronic - Plan Plan: Estimated LOS: [] days Continue current treatment . Will be seen by psychiatrist on Friday. Justification for Continued Inpatient Stay: Moving patient to a less restrictive environment may result in her decompensation.
--- NOTE | 2018-05-24 14:47 | P.CON ---
History of Present Illness Service: hospitalist Consult date: 05/24/18 Requesting Physician: Anny Reed Reason for Consult: Medical management Primary Care Provider: UNKNOWN Chief Complaint: Urinary frequency and swollen feet History of Present Illness: Patient is a 52-year-old female with a history of type 2 diabetes, major depressive order, and hypertension. She was Castro acted after attempting to kill herself. She is currently being treated in the inpatient psychiatric unit. She was previously in the medical unit due to elevated blood pressure. Blood pressure improved with improvement of her emotional issues. She has a complaint today of swelling in her feet bilaterally. She is also experienced several episodes of nighttime incontinence and urinary urgency. She tells me that this is her normal symptom for UTI. She does frequently get UTIs. She also has a complaint of a small sore on the back of her left heel from an old blister. She also suffers from some yeast in her groin area. Patient denies any chest pain or shortness of breath. No fever or chills. No nausea vomiting or diarrhea. Review of Systems All other systems reviewed negative except as stated in HPI PMFSH - History History Provided By: Patient, Medical Record - Medical History Medical History: Medical History (Last Reviewed 05/24/18 @ 14:42 by JEANNIE John) Diabetes History of hysterectomy Hyperlipidemia Hypertension - Surgical History Surgical History: Surgical History (Last Reviewed 05/24/18 @ 14:42 by JEANNIE John) History of back surgery History of knee surgery Hx of cholecystectomy - Family History Family History: Family History (Last Reviewed 05/24/18 @ 14:43 by JEANNIE John) Other Mood disorder Psychosis - Social History I have reviewed the patient's Social History: Yes - Tobacco History Second Hand Smoke Exposure: No Smoking Status: Never smoker Tobacco Type: Cigarettes - Alcohol History How Often Do You Have a Drink Containing Alcohol: Never - Substance Use History Substance History: No History of Abuse Medications and Allergies Active Medications: Active Medications Acetaminophen (Tylenol) 650 mg PO Q4H PRN PRN Reason: Pain 1-5 or Temp >101F Al Hydrox/Mg Hydrox/Simethicone (Mag-Al Plus Susp Liq) 30 ml PO Q6H PRN PRN Reason: DYSPEPSIA Al Hydroxide/Mg Hydroxide (Milk Of Magnesia Liq) 30 ml PO Q12H PRN PRN Reason: Mild Constipation Atorvastatin Calcium (Lipitor) 20 mg PO DAILY [facility] Last Admin: 05/24/18 09:22 Dose: 20 mg Cephalexin Monohydrate (Keflex) 250 mg PO Q8HR [facility] Stop: 05/29/18 23:59 Clonidine HCl (Catapres) 0.1 mg PO Q6H PRN PRN Reason: SBP>160, DBP>90 Last Admin: 05/23/18 17:30 Dose: 0.1 mg Duloxetine HCl (Cymbalta) 30 mg PO BID [facility] Last Admin: 05/24/18 14:34 Dose: 30 mg Gabapentin (Neurontin) 600 mg PO TID [facility] Last Admin: 05/24/18 14:34 Dose: 600 mg Hydralazine HCl (Apresoline) 25 mg PO TID [facility] Last Admin: 05/24/18 14:34 Dose: 25 mg Insulin Aspart (Novolog Insulin Correctional Sugar Inj) [address] [facility]; Protocol Last Admin: 05/24/18 12:00 Dose: Not Given Insulin Detemir (Levemir Inj) 25 unit SQ BID [facility] Last Admin: 05/24/18 08:30 Dose: 25 unit Lorazepam (Ativan) 0.5 mg PO Q6H PRN PRN Reason: Anxiety Last Admin: 05/24/18 11:03 Dose: 0.5 mg Losartan Potassium (Cozaar) 50 mg PO DAILY [facility] Last Admin: 05/24/18 09:22 Dose: 50 mg Metoprolol Tartrate (Lopressor) 100 mg PO BID [facility] Last Admin: 05/24/18 09:22 Dose: 100 mg Mupirocin (Bactroban 2% Oint) 1 applicatio TOPICAL BID [facility] Nystatin (Mycostatin Powder) 1 applicatio TOPICAL BID [facility] Risperidone (Risperdal) 1 mg PO BID [facility] Last Admin: 05/24/18 09:22 Dose: 1 mg Senna/Docusate Sodium (Maria E-Colace) 1 tab PO BID [facility] Last Admin: 05/24/18 09:00 Dose: 1 tab Allergies Allergy/AdvReac Type Severity Reaction Status Date / Time lisinopril Allergy Unknown Verified 11/23/17 18:19 metformin Allergy Unknown Verified 11/23/17 18:19 prochlorperazine Allergy Unknown Verified 11/23/17 18:19 Home Medications Medication Instructions Recorded Confirmed Type atorvastatin 20 mg PO DAILY 05/21/18 05/23/18 History duloxetine 30 mg PO BID 05/21/18 05/23/18 History gabapentin 600 mg PO TID 05/21/18 05/23/18 History hydralazine 25 mg PO TID 05/21/18 05/23/18 History metoprolol tartrate 100 mg PO BID 05/21/18 05/23/18 History Physical Exam Vital signs: Vital Signs 05/23/18 16:04 05/24/18 05:55 Temperature 98 F 98.1 F Pulse Rate 77 81 Respiratory Rate 17 Blood Pressure 173/107 H 131/62 Pulse Oximetry 97 95 Intake & Output 05/23/18 05/24/18 05/24/18 18:59 06:59 18:59 Weight 113.455 kg Other: Weight On Admission 113.455 kg Narrative: GENERAL: Well-nourished, well-developed adult female in no obvious distress. SKIN: Warm and dry. Small lesion on the back of left heel that appears to be old blister. HEAD: Atraumatic. Normocephalic. CARDIOVASCULAR: Regular rate and rhythm. RESPIRATORY: No accessory muscle use. Clear to auscultation. Breath sounds equal bilaterally. GASTROINTESTINAL: Abdomen soft, non-tender, non-distended. Positive bowel sounds. MUSCULOSKELETAL: +1 pitting edema ankles and feet bilaterally. No calf tenderness or unilateral distribution of swelling. NEUROLOGICAL: Awake and alert. No obvious cranial nerve deficits. Motor grossly within normal limits. Normal speech. Assessment and Plan - Plan Patient is a 52-year-old female with a history of type 2 diabetes, major depressive order, and hypertension. She was Castro acted after attempting to kill herself. Major depressive order -Managed by primary/psychiatry Hypertension -Controlled on current losartan and Lopressor. Patient has clonidine as needed Edema -Add hydrochlorothiazide -monitor electrolytes Urinary tract infection -UA ordered -Empiric treatment with Keflex started 05/24; monitor cultures for sensitivity Skin lesion -Antibiotic ointment ordered Olivia -Nystatin powder ordered Thank you for this consult. We look forward to assisting you with the medical management of this patient
[2018-05-24 17:25] VITALS: O2SAT 96
[2018-05-24] MEDS: Nystatin 100,000 UNITS/GM Powder 15 GM Bottle TOPICAL SCH (21:22)
[2018-05-25 05:59] VITALS: BP 177/99; PULSE 84; TEMP 98.6
[2018-05-25] MEDS: LORazepam 0.5 MG Tablet PO PRN (06:07)
[2018-05-25] MEDS: Gabapentin 300 MG Capsule PO SCH ×2 (08:39→13:40)
[2018-05-25] MEDS: hydrALAZINE 25 MG Tablet PO SCH ×2 (08:40→13:40)
[2018-05-25] MEDS: Metoprolol Tartrate 100 MG Tablet PO SCH (08:40)
[2018-05-25] MEDS ORDERED: hydroCHLOROthiazide 25 MG Tablet PO SCH (09:00)
[2018-05-25] MEDS: Insulin Detemir Inj 1,000 UNIT/10 ML Vial SQ SCH (09:11)
[2018-05-25] MEDS: Insulin NovoLOG Aspart Correctional Sugar Inj SQ SCH ×3 (09:47→17:10)
[2018-05-25] MEDS: Senna/Docusate Sodium 8.6/50 MG Tablet PO SCH (12:19)
--- NOTE | 2018-05-25 13:24 | P.DSPSY ---
Psychiatry Discharge Summary Inpatient Psychiatric care?: Yes Advance Directives: No Mental Health Advance Directive: No Health Care Proxy: No - Admission Admission Date: May 23, 2018 15:49 - Admission Diagnosis (1) Major depressive disorder, recurrent, severe w/o psychotic behavior Code(s): F33.2 - Major depressive disorder, recurrent severe without psychotic features Brief History: Patient initially admitted to the psychiatric unit on 05/22 under visit [id number] on the day of admission patient showed a volatile hypertension in a range that the medicine service felt needed brief stay on the critical care unit. Thus patient was discharged from [facility] for direct admission to the medical unit. The next day she was medically cleared and returned to the psychiatric unit however administratively there was back and forth. However this was a continuation of the same continuity of care. Please see my H&P dictated under that visit number. For further details Tobacco Use In Past 30 Days: No How Often Do You Have a Drink Containing Alcohol: Never Hospital Course: Patient's hospital course was uneventful she showed compliance with medication from day of admission. Patient has had a good weekend. She is a communication with her daughter. The daughter is arranged help find her on the room to rent close by where she lives up in [place]. Patient seen today she denies suicidality homicidality voice or visions, is excited about discharge. At this time she no longer meets criteria for inpatient psychiatric hospitalization thus patient be discharged today to herself to follow-up [facility] act also be getting community coordination through [facility] act Rx times 1 month. Also follow through the PCP for various medical issues - Discharge Discharge Date: 05/25/18 - Discharge Diagnosis (1) Major depressive disorder, recurrent, severe w/o psychotic behavior Code(s): F33.2 - Major depressive disorder, recurrent severe without psychotic features Status: Chronic Discharge Disposition: Home - Discharge Instructions Discharge Diet: Regular Diet Activities You Can Perform: Regular- No Restrictions - Discharge Time > 30 minutes Mental Status Examination Appearance: Appropriate Consciousness: Alert Orientation: x4 Motor Activity: Normal gait Speech: Unremarkable Language: Adequate Fund of Knowledge: Adequate Attention and Concentration: Adequate Memory: Unremarkable Mood: Sad Affect: Sad Thought Process & Associations: Intact Thought Content: Appropriate Hallucination Type: None Delusion Type: None Suicidal Ideation: No Suicidal Plan: No Suicidal Intention: No Homicidal Ideation: No Homicidal Plan: No Homicidal Intention: No Insight: Fair Judgment: Impulsive Discharge/Advance Care Plan - Results Vital Signs: Last Vital Signs Temp 98.6 F 05/25/18 05:59 Pulse 84 05/25/18 05:59 Resp 17 05/25/18 05:59 BP 177/99 H 05/25/18 05:59 Pulse Ox 96 05/25/18 05:59 Lab Results: Abnormal Lab Results 05/24/18 05/24/18 05/25/18 16:08 21:31 06:18 POC Glucose 112 H 87 73 05/25/18 11:21 POC Glucose 136 H Summary of Procedures: None done Pending Results: None - Medications Number of antipsychotic medications at discharge: 1 - Discharge Care Plan Goals to Promote Your Health: * To prevent worsening of your condition and complications * To maintain your health at the optimal level Directions to Meet Your Goals: Take your medications as prescribed Follow your dietary instruction Follow activity as directed Keep your appointments as scheduled Take your immunizations and boosters as scheduled If your symptoms worsen call your PCP, if no PCP go to Urgent Care Center or Emergency Room For 17/03 questions related to your inpatient stay or results of tests pending at discharge, please contact Dr. Hira Garcia MD at Smoking is Dangerous to Your Health. Avoid second hand smoking
[2018-05-25 13:26] LABS: Calcium 8.2 mg/dL (8.5-10.1); Carbon Dioxide 21.7 meq/L (21.0-32.0)
--- NOTE | 2018-05-25 13:37 | P.PN ---
Subjective Interval history: Patient is seen sitting in room. She feels that the swelling has gone down her feet a small amount. Still having some urinary incontinence; confirmed with psychiatry that she will get hardcopy prescription for additional antibiotics at discharge. No other new complaints or concerns. She is being discharged today Physical Exam Vital signs: Vital Signs 05/24/18 17:25 05/25/18 05:59 Temperature 98.2 F 98.6 F Pulse Rate 73 84 Respiratory Rate 17 17 Blood Pressure 185/91 H 177/99 H Pulse Oximetry 96 96 Narrative: GENERAL: Well-nourished, well-developed adult female in no obvious distress. SKIN: Warm and dry. Small lesion on the back of left heel that appears to be old blister. HEAD: Atraumatic. Normocephalic. CARDIOVASCULAR: Regular rate and rhythm. RESPIRATORY: No accessory muscle use. Clear to auscultation. Breath sounds equal bilaterally. GASTROINTESTINAL: Abdomen soft, non-tender, non-distended. Positive bowel sounds. MUSCULOSKELETAL: +1 pitting edema ankles and feet bilaterally. No calf tenderness or unilateral distribution of swelling. NEUROLOGICAL: Awake and alert. No obvious cranial nerve deficits. Motor grossly within normal limits. Normal speech. Results - Labs CBC & Chem 7: 05/25/18 12:50 05/25/18 12:50 Laboratory Results - last 24 hr 05/24/18 05/24/18 05/25/18 16:08 21:31 06:18 Sodium Potassium Chloride Carbon Dioxide Anion Gap BUN Creatinine Estimated GFR POC Glucose 112 H 87 73 Random Glucose Calcium 05/25/18 05/25/18 11:21 12:50 Sodium 139 Potassium 4.0 Chloride 106 Carbon Dioxide 21.7 Anion Gap 11 BUN 11 Creatinine 0.90 Estimated GFR 66 L POC Glucose 136 H Random Glucose 176 H Calcium 8.2 L Microbiology 05/24/18 16:40 Random Urine Urine Culture - Preliminary No growth in 24 hours Assessment and Plan - Plan Patient is a 52-year-old female with a history of type 2 diabetes, major depressive order, and hypertension. She was Castro acted after attempting to kill herself. Major depressive order -Managed by primary/psychiatry Hypertension -Controlled on current losartan and Lopressor. Patient has clonidine as needed Edema -Add hydrochlorothiazide -monitor electrolytes Urinary tract infection -UA ordered -Empiric treatment with Keflex started 05/24; monitor cultures for sensitivity Skin lesion -Antibiotic ointment ordered Olivia -Nystatin powder ordered Complete Keflex. Follow-up with primary care within 3-5 days.
[2018-05-25] MEDS: Nystatin 100,000 UNITS/GM Powder 15 GM Bottle TOPICAL SCH (13:40)
--- NOTE | 2018-05-25 15:48 | P.TTN ---
- Patient Problems Problems: 1. Discharge planning 2. Medication compliance 3. Knowledge deficit 4. Lack of coping skills - Progress Toward Goals Provider Present: Dr. Aisha Garcia (Pt. came in over the weekend and will be followed up with today.) Psychiatric Counselors Present: Zhane Jorge LCSW (Possible discharge. Follow up [facility]. Care coordination) - Documentation Teaching Recipient: Patient
== END 2018-05-25 17:10 | disposition home or self-care (01) ==
LOC: H260 15:49
PROVIDERS: ADMIT Psychiatry & Neurology Psychiatry; ATTEND Psychiatry & Neurology Psychiatry